=== PATIENT | female | born 1940 | race Caucasian/White ===

== ENCOUNTER → 2019-10-23 | Emergency (ER) | payer OTHER ==
[~2019-10-23] VITALS: Ht 170.2 cm; Wt 61.2 kg
[~2019-10-23] MED LIST: ALBUTEROL SULF 2.5 MG/0.5ML(0.5%) NEB SOLN NEB ONE; FUROSEMIDE 20 MG/2 ML VIAL ONE; FUROSEMIDE 40 MG/4 ML VIAL IV ONE; FUROSEMIDE INJECTION 10 ML ONE; IPRATROPIUM BROM 0.5 MG/2.5ML INH SOL NEB ONE; ONDANSETRON HCL 4 MG/2 ML VIAL IV ONE; ONDANSETRON HCL 4 MG/2 ML VIAL ONE; cloNIDine HCL 0.1 MG TAB PO ONE; methylPREDNISolone SOD SUCC 125 MG/2 ML VL IV ONE; predniSONE 20 MG TAB PO ONE
[2019-10-23 02:54] LABS: Basophils # (auto) 0.1 10 ^3/uL (0-0.2); Basophils % (auto) 0.8 % (0.0-2.0); Eosinophils # (auto) 0.4 10 ^3/uL (0-0.8); Eosinophils % (auto) 3.3 % (0.0-7.0); Hematocrit 41.2 % (36.0-46.0); Hemoglobin 13.1 g/dL (12.2-16.2); Lymphocytes # (auto) 3.2 10 ^3/uL (0.4-5.4); Lymphocytes % (auto) 29.1 % (10.0-50.0); Mean Corpuscular Hemoglobin 28.8 pg (28.0-32.0); Mean Corpuscular Hgb Conc. 31.7 g/dL (32.0-36.0); Mean Corpuscular Volume 90.8 fL (80.0-100.0); Monocytes # (auto) 0.6 10 ^3/uL (0-1.3); Monocytes % (auto) 5.1 % (0.0-12.0); Neutrophils # (auto) 6.7 10 ^3/uL (1.6-8.6); Neutrophils % (auto) 61.7 % (37.0-80.0); Nucleated Red Blood Cells % 0.1 %; Platelet Count (auto) 301 10^3/uL (140-450); Red Blood Cells 4.53 10^6/uL (4.0-5.20); Red Cell Distribution Width 15.5 % (11.8-14.3); White Blood Cell 10.8 10^3/uL (4.4-10.8)
[2019-10-23 03:09] LABS: Alanine Aminotransferase 19 U/L (13-56); Albumin 3.5 g/dL (3.4-5.0); Anion Gap 4 (5-15); Aspartate Aminotransferase 18 U/L (15-37); BUN/Creatinine Ratio 27.1; Blood Urea Nitrogen 19 mg/dL (7-18); Carbon Dioxide 30 mmol/L (21-32); Chloride 102 mmol/L (98-107); GFR African American 104 mL/min; GFR Non-African American 86 mL/min; Glucose 122 mg/dL (74-106); Potassium 3.8 mmol/L (3.5-5.1); Sodium 136 mmol/L (136-145)
[2019-10-23 03:14] LABS: Alkaline Phosphatase 131 U/L (45-117); Bilirubin, Total 0.4 mg/dL (0.2-1.0); Total Protein 7.6 g/dL (6.4-8.2)
[2019-10-23 11:00] VITALS: BP 158/74
== END | disposition home or self-care (01) ==
LOC: EDBD 02:12 → EDSEX 02:12 → ER 02:17
DX: J44.1 Chronic obstructive pulmonary disease with (acute) exacerbation (principal); I10 Essential (primary) hypertension
CPT/HCPCS: 36415; 71045; 80053; 83880; 84484; 85025; 85379; 93005; 94640; 96374; 96375; 99285; J1940; J2405; J2930; J7512; J7644

== ENCOUNTER 2019-12-19 11:42 | Inpatient (IN) | payer OTHER ==
[~2019-12-19] VITALS: Ht 170.2 cm; Wt 67.5 kg
[2019-12-19] MEDS ORDERED: methylPREDNISolone SOD SUCC 125 MG/2 ML VL IV ONE (12:00)
[2019-12-19] MEDS ORDERED: IPRATROPIUM BROM 0.5 MG/2.5ML INH SOL NEB ONE (12:00)
[2019-12-19] MEDS ORDERED: ALBUTEROL SULF 2.5 MG/0.5ML(0.5%) NEB SOLN NEB ONE (12:00)
[2019-12-19 12:33] LABS: Basophils # (auto) 0.1 10 ^3/uL (0-0.2); Basophils % (auto) 0.9 % (0.0-2.0); Eosinophils # (auto) 0.6 10 ^3/uL (0-0.8); Eosinophils % (auto) 6.5 % (0.0-7.0); Hematocrit 39.1 % (36.0-46.0); Hemoglobin 12.6 g/dL (12.2-16.2); Lymphocytes % (auto) 22.7 % (10.0-50.0); Mean Corpuscular Hemoglobin 29.4 pg (28.0-32.0); Mean Corpuscular Hgb Conc. 32.2 g/dL (32.0-36.0); Mean Corpuscular Volume 91.3 fL (80.0-100.0); Monocytes # (auto) 0.3 10 ^3/uL (0-1.3); Neutrophils # (auto) 5.7 10 ^3/uL (1.6-8.6); Neutrophils % (auto) 65.9 % (37.0-80.0); Nucleated Red Blood Cells % 0.1 %; Platelet Count (auto) 304 10^3/uL (140-450); Red Blood Cells 4.29 10^6/uL (4.0-5.20); Red Cell Distribution Width 14.7 % (11.8-14.3); White Blood Cell 8.6 10^3/uL (4.4-10.8)
[2019-12-19] MEDS ORDERED: AZITHROMYCIN 500MG/ 250ML 250 ML IV ONE (12:45)
[2019-12-19 13:20] LABS: Magnesium 2.2 mg/dL (1.6-2.6)
[2019-12-19 13:37] LABS: Albumin 3.4 g/dL (3.4-5.0); Calcium 8.5 mg/dL (8.5-10.1); Potassium 3.9 mmol/L (3.5-5.1)
[2019-12-19 13:40] LABS: BUN/Creatinine Ratio 31.9; Bilirubin, Total 0.7 mg/dL (0.2-1.0); Total Protein 7.1 g/dL (6.4-8.2)
[2019-12-19] MEDS ORDERED: ONDANSETRON HCL 4 MG/2 ML VIAL IV PRN (14:45)
[2019-12-19] MEDS ORDERED: MORPHINE SULF INJ 2 MG/ML SYRINGE 1ML IV PRN (14:45)
[2019-12-19] MEDS ORDERED: traMADol HCL 50 MG TAB PO PRN (14:45)
[2019-12-19] MEDS ORDERED: NITROGLYCERIN 0.4 MG SL TAB SL PRN (14:45)
[2019-12-19] MEDS ORDERED: LACTULOSE 20Gm/30ML SOLN PO PRN (14:45)
[2019-12-19] MEDS: methylPREDNISolone SOD SUCC 40 MG/ML VL IV SCH (14:45)
[2019-12-19] MEDS ORDERED: ALBUTEROL SULF 2.5 MG/0.5ML(0.5%) NEB SOLN NEB PRN (14:45)
[2019-12-19] MEDS ORDERED: ENALAPRILAT 1.25 MG/ML-1ML VIAL IV PRN (14:45)
[2019-12-19] MEDS ORDERED: DEXTROSE (50%) 50ML SYRG IV PRN (14:45)
[2019-12-19] MEDS: DOXYCYCLINE 100MG/250ML 250 ML IV SCH (14:45)
[2019-12-19] MEDS ORDERED: ACETAMINOPHEN 500 MG TAB PO PRN (14:45)
[2019-12-19] MEDS ORDERED: TEMAZEPAM 15 MG CAP PO PRN (14:45)
--- NOTE | 2019-12-19 15:20 | NUR ---
ARRIVAL NOTE: PATIENT AR[facility] TO [facility]. PATIENT COMPLAINING OF SHORTNESS OF BREATH AT THIS TIME. PATIENT ON 3L NC. PURSED LIP BREATHING NOTED. PATIENT TRANSFERRED VIA GURNEY. PATIENT HOB ELEVATED TO 45 DEGREE ANGLE. PATIENT REPORTS SOME RELIEF. 02 SATURATIONS AT 97%, RR 20. PATIENT BLOOD PRESSURE 197/90MMHG ON ARRIVAL. WILL MEDICATE PER EMR. TELE MONITOR #8 RUNNING SINUS RHYTHM IN THE 90'S. PATIENT UPDATED ON POC. VERBALIZED UNDERSTANDING BED IN LOWEST LOCKED POSITION WITH CALL LIGHT WITHIN REACH. WILL CONTINUE CARE.
[2019-12-19 15:25] VITALS: BP 163/73
[2019-12-19 15:30] VITALS: BP 197/90
[2019-12-19] MEDS: SODIUM CHLORIDE 0.9% 1,000 ML IV SCH (15:46)
[2019-12-19] MEDS ORDERED: ALBU1SYP PO (16:58)
[2019-12-19] MEDS ORDERED: FLUT250M2 INH (16:58)
[2019-12-19] MEDS ORDERED: TIOTCAP IN (16:58)
--- NOTE | 2019-12-19 16:58 | NUR ---
IV insertion IV access obtained, via clean sterile technique by inserting 20 gauge catheter at LFA after 1 attempt(s). IV secured properly. No trauma to site. Patient tolerated well. IV TO LEFT WRIST DC'D DUE TO INFILTRATION. NOTE:
[2019-12-19] MEDS: ACCU-CHEK COMFORT CURVE STRIP VI SCH ×2 (17:00→21:52)
--- NOTE | 2019-12-19 18:10 | NUR ---
PATIENT TRANSFERRED TO ROOM 248A. REPORT GIVEN TO RN JOSE. NO S/S OF DISTRESS NOTED AT THIS TIME.
--- NOTE | 2019-12-19 18:20 | NUR ---
PATIENT RECEIVED TRANSFERED TO EAST. NO C/O CHEST PAIN. NOTED S/S OF SOB. PATIENT USED INHALER FOR SOB. PATIENT IS A/O X 4, PULM: LUNGS SOUNDS DIMINISHED AT THE BASES. CARDIAC, HEART SOUNDS CTA. WILL CONTINUE TO MONITOR AND ENDORSE TO NOC SHIFT.
--- NOTE | 2019-12-19 19:26 | NUR ---
Opening Shift Note Assumed care of patient. Pt is awake, alert, and oriented X 4. No S/S of respiratory distress, no pain. Patient is on supplemental oxygen 2.5 LPM via NC. Respirations are regular and non-labored. Bed in lowest position, brakes locked, side rails X 2 up, call light within reach. Tele box matches to the monitor, leads are correctly placed. POC discussed with a patient. Pt was instructed to call for assistance as needed. Will continue to monitor for changes Q1hr and PRN.
[2019-12-19 20:00] VITALS: BP 159/96
[2019-12-19] MEDS: ALBUTEROL SULF HFA 90MCG INH 200DOSE IN SCH (21:35)
--- NOTE | 2019-12-19 21:58 | NUR ---
Paging hospitalist because patient is very SOB and coughing frequently. Patient only has scheduled Albuterol inhaler 180 mcg for SOB.
[2019-12-19 22:00] VITALS: BP 159/96
[2019-12-19] MEDS ORDERED: IPRATROPIUM BROM 0.5 MG/2.5ML INH SOL NEB SCH (22:00)
[2019-12-19] MEDS ORDERED: ALBUTEROL SULF 2.5 MG/0.5ML(0.5%) NEB SOLN NEB SCH (22:00)
--- NOTE | 2019-12-19 22:15 | NUR ---
Spoke to MD Quintana regarding patient's SOB and constant coughing. Orders received: 1) Robitussin-DM 10 ml PO q 4 hrs PRN, 2) Albuterol 2.5 mg Nebulizer q 4 hrs PRN, 3) Atrovent 0.5 mg Nebulizer q 4 hrs PRN.
[2019-12-19] MEDS: guaiFENesin-DM 100/10mg/5ml SYR PO PRN (22:33)
[2019-12-20] MEDS: ALBUTEROL SULF 2.5 MG/0.5ML(0.5%) NEB SOLN NEB PRN ×3 (00:25→09:34)
[2019-12-20] MEDS: IPRATROPIUM BROM 0.5 MG/2.5ML INH SOL NEB PRN ×3 (00:26→09:35)
[2019-12-20] MEDS ORDERED: LOSA25TA38 PO (02:26)
[2019-12-20] MEDS: methylPREDNISolone SOD SUCC 40 MG/ML VL IV SCH ×2 (02:35→15:58)
[2019-12-20] MEDS: DOXYCYCLINE 100MG/250ML 250 ML IV SCH ×2 (02:36→15:58)
[2019-12-20] MEDS: SODIUM CHLORIDE 0.9% 1,000 ML IV SCH (02:37)
[2019-12-20 05:00] VITALS: BP 136/69
[2019-12-20] MEDS: ALBUTEROL SULF HFA 90MCG INH 200DOSE IN SCH ×2 (05:49→06:25)
--- NOTE | 2019-12-20 06:02 | NUR ---
Spoke to MD Quintana regarding patient's incontinence and our inability to gain a urine sample. Order received: Straight cath once for urinalysis.
--- NOTE | 2019-12-20 06:25 | NUR ---
Respiratory note: MDI GIVEN BY RN, TOLERATED WELL.
[2019-12-20] MEDS: ACCU-CHEK COMFORT CURVE STRIP VI SCH (06:48)
--- NOTE | 2019-12-20 07:28 | NUR ---
Opening Shift Note Assumed care of patient, resting with eyes closed, arouseable to name. No S/S of distress/SOB, no pain noted. Bed locked in lowest position, side rails up x2, call light within reach. Fall precautions in place per safety protocol. Will continue to monitor for changes Q1hr and PRN
[2019-12-20 08:00] VITALS: BP 148/92
[2019-12-20 09:47] LABS: Urine Bacteria FEW /hpf (None Seen); Urine Blood Negative /uL (Negative); Urine Specific Gravity 1.012 (1.001-1.035); Urine WBC <1 /hpf (0 - 5)
[2019-12-20] MEDS ORDERED: ENOXAPARIN SOD 40 MG/0.4 ML SYRINGE SC SCH (10:00)
[2019-12-20] MEDS ORDERED: ENALAPRIL MALEATE 2.5 MG TAB PO SCH (10:00)
--- NOTE | 2019-12-20 10:53 | NUR ---
WOUND CARE NOTE: WOUND CARE IN TO SEE PATIENT PER WOUND CARE REQUEST. PATIENT ADMITTED TO [facility] FOR COPD EXACERBATION. PATIENT'S LISA SCORE IS 19. BEDSIDE NURSE NOTED SKIN INTEGRITY ISSUE UPON ADMISSION. PHOTOGRAPH TAKEN AT THAT TIME FOR REFERENCE. PATIENT HAS A SKIN TEAR TO THE RIGHT SHEPHERD. REMOVED PREVIOUS DRESSING, CLEANSED WITH NORMAL SALINE, PATTED DRY WITH STERILE GAUZE, APPLIED THERAHONEY AND COVERED WITH OPTIFOAM GENTLE DRESSING. NO THER SKIN INTEGRITY ISSUES NOTED AT THIS TIME. RECOMMEND: EOD/PRN DRESSING CHANGE TO RIGHT SHEPHERD. SKIN/WOUND CARE PLAN. NO FURTHER WOUND CARE MONITORING NECESSARY. Addendum: 12/20/19 at 1554 by ROBBY ANDERSON RN RN Amended: Links added.
[2019-12-20 12:00] VITALS: BP 137/71
[2019-12-20] MEDS: guaiFENesin-DM 100/10mg/5ml SYR PO PRN (12:00)
[2019-12-20] MEDS ORDERED: amLODIPine BESYLATE 5 MG TAB PO ONE (12:00)
[2019-12-20] MEDS: IPRATROPIUM BROM 0.5 MG/2.5ML INH SOL NEB SCH ×3 (12:20→18:25)
[2019-12-20] MEDS: ALBUTEROL SULF 2.5 MG/0.5ML(0.5%) NEB SOLN NEB SCH ×3 (12:20→18:25)
--- NOTE | 2019-12-20 13:50 | NUR ---
TELE DC'D, TELE BOX SENT TO ICU.
--- NOTE | 2019-12-20 15:20 | NUR ---
Patient rounds Patient sitting up in bed watching television, no s/s of distress or sob. Will continue to monitor q1hr and PRN.
[2019-12-20 17:00] VITALS: BP 159/78
--- NOTE | 2019-12-20 20:24 | NUR ---
Patient will not allow me to take away the albuterol 90 mcg inhaler she was prescribed in COVID unit, even though medication has been discontinued. She wants the inhaler in case she has an asthma attack or has sudden SOB. I educated patient that the patient was receiving 2.5 mg Albuterol with every breathing treatment and that there were also PRN breathing treatments available. She states the 90 mcg inhaler works better and that the treatments only work with it. she states she is terrified of being intubated again and if the inhaler prevents that than she wants it nearby. Patient still refused to allow me to remove inhaler from respiratory equipment bag in room. I told her that our policy is not to have any medications in the patient's room and not to allow patients to administer any medications by themselves but she refused. She wants the inhaler available. I educated patient also that the increased albuterol dosage from using the inhaler may decrease the effectiveness of the medication overall. Still, patient wants inhaler. Charge nurse made aware.
[2019-12-20 21:28] VITALS: BP 143/70
[2019-12-21] MEDS: IPRATROPIUM BROM 0.5 MG/2.5ML INH SOL NEB SCH ×7 (01:14→22:14)
[2019-12-21] MEDS: ALBUTEROL SULF 2.5 MG/0.5ML(0.5%) NEB SOLN NEB SCH ×7 (01:14→22:13)
[2019-12-21] MEDS: methylPREDNISolone SOD SUCC 40 MG/ML VL IV SCH ×3 (03:03→21:01)
[2019-12-21] MEDS: DOXYCYCLINE 100MG/250ML 250 ML IV SCH (03:04)
[2019-12-21 05:58] VITALS: BP 151/82
--- NOTE | 2019-12-21 07:20 | NUR ---
Opening Shift Note Assumed care of patient, awake and alert. No S/S of distress/SOB, no pain noted. Updated on POC and instructed to call for assistance as needed, patient verbalized understanding. Bed locked in lowest position, side rails up x2, call light within reach. Fall precautions in place per safety protocol. Will continue to monitor for changes Q1hr and PRN
[2019-12-21 08:00] VITALS: BP 144/87
[2019-12-21] MEDS: amLODIPine BESYLATE 5 MG TAB PO SCH (09:21)
[2019-12-21] MEDS ORDERED: AZITHROMYCIN 500MG/ 250ML 250 ML IV ONE (11:45)
[2019-12-21] MEDS ORDERED: FUROSEMIDE 20 MG/2 ML VIAL IV ONE (11:45)
[2019-12-21] MEDS ORDERED: POTASSIUM CHL 20 Meq TABLET PO ONE (11:45)
[2019-12-21] MEDS ORDERED: BUDESONIDE (INHALATION) 0.5 MG/2 ML NEB NEB ONE (11:45)
[2019-12-21] MEDS ORDERED: LORazepam 2MG/ML-1ML VIAL IV PRN (11:45)
[2019-12-21] MEDS ORDERED: cefTRIAXone 1GM/50ML D5W 50 ML IV ONE (11:45)
[2019-12-21 12:00] VITALS: BP 164/82
--- NOTE | 2019-12-21 15:05 | NUR ---
Patient rounds Patient sitting up in bed watching television, no s/s of distress or sob. Will continue to monitor q1hr and PRN.
[2019-12-21 17:00] VITALS: BP 149/76
--- NOTE | 2019-12-21 18:53 | NUR ---
Patient rounds Patient awake and alert, sitting up in bed eating dinner, no s/s of distress or sob. Will endorse care to night auditor RN.
--- NOTE | 2019-12-21 20:00 | NUR ---
Opening Shift Note Assumed care of patient, awake and alert. No S/S of distress/SOB or pain. Instructed on POC and to call for assist PRN, will continue to monitor for changes Q1hr and PRN.
[2019-12-21 22:00] VITALS: BP 149/76
[2019-12-21] MEDS: BUDESONIDE (INHALATION) 0.5 MG/2 ML NEB NEB SCH (22:14)
[2019-12-22] MEDS: IPRATROPIUM BROM 0.5 MG/2.5ML INH SOL NEB SCH ×6 (02:46→22:00)
[2019-12-22] MEDS: ALBUTEROL SULF 2.5 MG/0.5ML(0.5%) NEB SOLN NEB SCH ×6 (02:46→21:59)
[2019-12-22] MEDS: methylPREDNISolone SOD SUCC 40 MG/ML VL IV SCH ×3 (03:31→20:11)
[2019-12-22 05:00] VITALS: BP 149/68
[2019-12-22 06:33] LABS: BUN/Creatinine Ratio 31.6; Calcium 8.6 mg/dL (8.5-10.1); Potassium 4.2 mmol/L (3.5-5.1)
--- NOTE | 2019-12-22 07:05 | NUR ---
Report given to Rohan Enciso and told patient is sensitive to cleaning bleach , she smelled it, face mask given, and WEAVER NEEDLE LOOM made aware.
[2019-12-22 09:03] VITALS: BP 148/76
[2019-12-22] MEDS: amLODIPine BESYLATE 5 MG TAB PO SCH (09:43)
[2019-12-22] MEDS: cefTRIAXone 1GM/50ML D5W 50 ML IV SCH (09:43)
[2019-12-22] MEDS: AZITHROMYCIN 500MG/ 250ML 250 ML IV SCH (09:43)
[2019-12-22] MEDS: BUDESONIDE (INHALATION) 0.5 MG/2 ML NEB NEB SCH ×2 (10:13→17:58)
[2019-12-22 11:30] VITALS: BP 148/76
[2019-12-22 12:11] VITALS: BP 155/80
--- NOTE | 2019-12-22 12:38 | NUR ---
1230 12/22/19 I faxed transfer order and Notice Regarding Post Stabilization to [facility]-document scanned into [employer]. I faxed today's MD progress notes, labs, vitals and medication list to [facility].
--- NOTE | 2019-12-22 14:29 | NUR ---
Nutrition Assessment Notes Please refer to link for full assessment notes. Est Energy needs: 1395-1326 kcals (23-25 kcal/kgBW) Est Protein needs: 79-105 gms/day (1.2-1.6 gm/kgBW) Will continue to monitor and reassess prn. Addendum: 12/22/19 at [address] Amended: Links added.
[2019-12-22 16:48] VITALS: BP 156/77
--- NOTE | 2019-12-22 17:00 | NUR ---
1630 12/22/19 I called [facility] and spoke with senior tax analyst Radha to request an update on the status of the transfer to [facility]. Per Radha, the assigned social work case manager Fany did receive the order and is working on the transfer.
--- NOTE | 2019-12-22 17:36 | NUR ---
PATIENT SPOKE WITH HERMINIO PER PATIENT HERMINIO STATED THAT PATIENT WILL NOT BE TRANSFERRED. UPDATED BOONE WITH CASE MANAGEMENT AND MANAGER THERAPY ELVI GEE MADE AWARE.
--- NOTE | 2019-12-22 18:53 | NUR ---
Patient Rounds Patient sitting up in bed eating dinner, no s/s of distress or sob. Will endorse care to warehouse worker 2nd shift RN.
--- NOTE | 2019-12-22 19:20 | NUR ---
Opening Shift Note Assumed care of patient, awake and alert. No S/S of distress/SOB or pain. POC discussed and questions answered. Bed is locked in lowest position with side rails up x 2 for safety, call light is within reach and patient is encouraged to call for assistance as needed, will continue to monitor for changes Q1hr and PRN.
[2019-12-22 22:00] VITALS: BP 157/84
[2019-12-23] MEDS: ALBUTEROL SULF 2.5 MG/0.5ML(0.5%) NEB SOLN NEB SCH ×6 (02:08→22:15)
[2019-12-23] MEDS: IPRATROPIUM BROM 0.5 MG/2.5ML INH SOL NEB SCH ×6 (02:08→22:14)
--- NOTE | 2019-12-23 04:05 | NUR ---
IV removal IV DC'd with clean sterile technique, catheter fully intact. Pressure dressing applied to site. Patient tolerated well.
[2019-12-23] MEDS: methylPREDNISolone SOD SUCC 40 MG/ML VL IV SCH ×2 (04:20→22:15)
--- NOTE | 2019-12-23 04:24 | NUR ---
IV insertion IV access obtained, via clean sterile technique by inserting 22 gauge catheter at right forearm after 2 attempt(s). IV secured properly. No trauma to site. Patient tolerated well.
[2019-12-23 04:56] VITALS: BP 155/82
[2019-12-23] MEDS: BUDESONIDE (INHALATION) 0.5 MG/2 ML NEB NEB SCH ×2 (06:07→18:17)
--- NOTE | 2019-12-23 08:09 | NUR ---
0800 12/23/19 I received a page from patient's nurse 12/22/19 regarding transfer to [facility] order stating that the [facility] Parts Sales Advisor had spoke with patient and patient told her she didn't want to be transferred to [facility]-case aide told her she could stay here because she is a [facility] senior and is more than 30 miles from their nearest facility.
[2019-12-23 09:00] VITALS: BP 145/77
[2019-12-23] MEDS: cefTRIAXone 1GM/50ML D5W 50 ML IV SCH (10:24)
[2019-12-23] MEDS: AZITHROMYCIN 500MG/ 250ML 250 ML IV SCH (10:30)
[2019-12-23] MEDS: amLODIPine BESYLATE 5 MG TAB PO SCH (10:30)
[2019-12-23] MEDS ORDERED: HCTZ 25 MG TAB PO ONE (12:00)
[2019-12-23 13:00] VITALS: BP 154/81
--- NOTE | 2019-12-23 13:29 | NUR ---
PT BP 154/81, HR 95, NO PRN ON BOARD, CALLED DR ERAZO, NOTIFIED PT BP IN 150'S. REPORTS HE IS AWARE AND HE ORDERED HYDROCHLOROTHIAZIDE, BUT IT TAKES TIME WORK.
--- NOTE | 2019-12-23 13:39 | NUR ---
assessment Patient is a 79 year old female who is alert and oriented. Patients cognitive abilities are intact. Prior to admission patient lived home with family and functioned with assistance. Per patient she will return home to her prior living arrangements post discharge and family will transport her home. Patient informed me she has a fww, scooter, nebulizer, bipap, and oxygen for home use. Per patient her PCP is Dr Harmon at the [facility]. Patient is aware of her transfer order. Patient informed me she prefers not to transfer. I informed patient she has a right to speak to a protective services social worker regarding all care. I informed patient she has a right to participate in any and all discharge planning. Patient has a POA and advanced directive. Patient verbalized understanding and agreed to discharge plan. Addendum: 12/23/19 at 1341 by Kena BYERS Amended: Links added.
--- NOTE | 2019-12-23 16:42 | NUR ---
WOUND CARE PT WOUND RIGHT SHEPHERD CLEANSED WITH WOUND CLEANSER, THERA HONEY AND OPTIFOAM APPLIED. PT TOLERATED PROCEDURE WELL.
[2019-12-23 17:00] VITALS: BP 143/84
--- NOTE | 2019-12-23 18:19 | NUR ---
RT NOTE PT WAS SEEN BY RT FOR [facility]N TX. PT TOLERATES WELL VIA MASK. NO ADVERSE REACTION NOTED. CONT ORDERED Addendum: 12/23/19 at 1820 by Mary Lucas RT Amended: Links added.
[2019-12-23 22:00] VITALS: BP 155/84
--- NOTE | 2019-12-23 22:18 | NUR ---
RT NOTE PT WAS SEEN BY RT FOR HHN TX. PT TOLERATES WELL VIA MASK. NO ADVERSE REACTION NOTED. CONT ORDERED Addendum: 12/23/19 at 2220 by Mary Lucas RT Amended: Links added.
[2019-12-24] MEDS: ALBUTEROL SULF 2.5 MG/0.5ML(0.5%) NEB SOLN NEB SCH ×5 (02:03→18:38)
[2019-12-24] MEDS: IPRATROPIUM BROM 0.5 MG/2.5ML INH SOL NEB SCH ×5 (02:03→18:38)
--- NOTE | 2019-12-24 02:15 | NUR ---
RT NOTE PT WAS SEEN BY RT FOR [facility]N TX. PT TOLERATES WELL VIA MASK. NO ADVERSE REACTION NOTED. CONT ORDERED Addendum: 12/24/19 at 0230 by Mary Lucas RT Amended: Links added.
[2019-12-24 05:00] VITALS: BP 136/84
[2019-12-24] MEDS: BUDESONIDE (INHALATION) 0.5 MG/2 ML NEB NEB SCH ×2 (06:56→18:38)
[2019-12-24 08:42] VITALS: BP 133/87
[2019-12-24] MEDS: cefTRIAXone 1GM/50ML D5W 50 ML IV SCH (08:51)
[2019-12-24] MEDS: amLODIPine BESYLATE 5 MG TAB PO SCH (08:56)
[2019-12-24] MEDS: methylPREDNISolone SOD SUCC 40 MG/ML VL IV SCH (08:57)
[2019-12-24] MEDS ORDERED: AZITHROMYCIN 250 MG TAB PO SCH (10:00)
[2019-12-24] MEDS ORDERED: HCTZ 25 MG TAB PO SCH (10:00)
[2019-12-24 11:49] VITALS: BP 133/87
[2019-12-24 13:00] VITALS: BP 145/90
--- NOTE | 2019-12-24 13:01 | NUR ---
WOUND PHOTOS TAKEN OF LEFT SHEPHERD FOR DC.
--- NOTE | 2019-12-24 13:38 | NUR ---
PT REPORTS SHE HAS PORTABLE OXYGEN FROM HOME AT BEDSIDE WITH 91% CHARGE. SPOKE WITH PATIENT DAUGHTER, DAUGHTER REPORTS SHE CANNOT PICK PATIENT UP UNTIL 1700. PT HOME MEDS RETURNED TO PATIENT FROM PHARMACY. PATIENT ADVISED NOT TO USE THEM WHILE IN HOSPITAL. PT AWARE.
[2019-12-24 17:00] VITALS: BP 106/84
--- NOTE | 2019-12-24 18:25 | NUR ---
RT NOTE PT WAS SEEN BY RT FOR HHN TX. PT TOLERATES WELL VIA MASK. NO ADVERSE REACTION NOTED. CONT ORDERED Addendum: 12/24/19 at 1929 by Mary Lucas RT Amended: Links added.
--- NOTE | 2019-12-24 18:52 | NUR ---
Discharge instructions given as ordered. Encourage to follow up with PMD at [facility] as instructed. All questions and concerns addressed. Patient verbalized understanding. Medication reconciliation form completed and copy given to patient. Home medications held in Pharmacy returned to patient. IV removed with catheter intact, pressure dressing applied. Patient taken to vehicle via wheelchair with all personal belongings, accompanied by staff. No distress noted at time of departure.
== END 2019-12-24 19:00 | disposition home or self-care (01) | DRG 193 ==
LOC: EDBD 11:42 → ER 11:42 → TELE-EAST 11:43 → EAST 12-20 14:59
PROVIDERS: ADMIT Internal Medicine; ATTEND Internal Medicine
DX: J15.4 Pneumonia due to other streptococci (principal); J96.20 Acute and chronic respiratory failure, unspecified whether with hypoxia or hypercapnia; J44.1 Chronic obstructive pulmonary disease with (acute) exacerbation; J44.0 Chronic obstructive pulmonary disease with (acute) lower respiratory infection; J45.901 Unspecified asthma with (acute) exacerbation; I16.0 Hypertensive urgency; R73.9 Hyperglycemia, unspecified; I10 Essential (primary) hypertension; Z03.818 Encounter for observation for suspected exposure to other biological agents ruled out; Z90.49 Acquired absence of other specified parts of digestive tract; Z90.710 Acquired absence of both cervix and uterus; Z88.5 Allergy status to narcotic agent; Z88.2 Allergy status to sulfonamides
CPT/HCPCS: 36415; 71045; 80048; 80053; 81001; 82962; 83036; 83605; 83735; 83880; 84484; 85025; 87040; 87070; 87205; 87804; 87880; 93005; 94640; 97163; 99291; G0378; J0696; J3490

== ENCOUNTER 2020-03-21 22:09 | Emergency (ER) | payer OTHER ==
[~2020-03-21] VITALS: Ht 170.2 cm; Wt 65.8 kg
[~2020-03-21 22:09] MED LIST changes: +ALBU2SYP10 PO; -ALBUTEROL SULF 2.5 MG/0.5ML(0.5%) NEB SOLN NEB ONE; +FLUT250M2 INH; -FUROSEMIDE 20 MG/2 ML VIAL ONE; -FUROSEMIDE 40 MG/4 ML VIAL IV ONE; -FUROSEMIDE INJECTION 10 ML ONE; -IPRATROPIUM BROM 0.5 MG/2.5ML INH SOL NEB ONE; +LOSA25TA38 PO; -ONDANSETRON HCL 4 MG/2 ML VIAL IV ONE; -ONDANSETRON HCL 4 MG/2 ML VIAL ONE; +TIOTCAP IN; -cloNIDine HCL 0.1 MG TAB PO ONE; -methylPREDNISolone SOD SUCC 125 MG/2 ML VL IV ONE; -predniSONE 20 MG TAB PO ONE
[2020-03-21] MEDS ORDERED: methylPREDNISolone SOD SUCC 125 MG/2 ML VL ONE (22:20)
[2020-03-21] MEDS ORDERED: methylPREDNISolone SOD SUCC 125 MG/2 ML VL IV ONE (22:30)
[2020-03-21 22:44] LABS: Basophils # (auto) 0.1 10 ^3/uL (0-0.2); Basophils % (auto) 1.1 % (0.0-2.0); Eosinophils # (auto) 0.4 10 ^3/uL (0-0.8); Hematocrit 39.6 % (36.0-46.0); Hemoglobin 13.4 g/dL (12.2-16.2); Lymphocytes # (auto) 3.7 10 ^3/uL (0.4-5.4); Lymphocytes % (auto) 41.8 % (10.0-50.0); Mean Corpuscular Hemoglobin 30.8 pg (28.0-32.0); Mean Corpuscular Hgb Conc. 33.9 g/dL (32.0-36.0); Mean Corpuscular Volume 90.9 fL (80.0-100.0); Monocytes # (auto) 0.6 10 ^3/uL (0-1.3); Monocytes % (auto) 6.3 % (0.0-12.0); Neutrophils % (auto) 45.8 % (37.0-80.0); Nucleated Red Blood Cells % 0.1 %; Platelet Count (auto) 318 10^3/uL (140-450); Red Blood Cells 4.35 10^6/uL (4.0-5.20); Red Cell Distribution Width 14.1 % (11.8-14.3); White Blood Cell 8.8 10^3/uL (4.4-10.8)
[2020-03-21 23:02] LABS: Albumin 3.8 g/dL (3.4-5.0); Anion Gap 5 (5-15); BUN/Creatinine Ratio 23.5; Blood Urea Nitrogen 20 mg/dL (7-18); Calcium 8.8 mg/dL (8.5-10.1); Carbon Dioxide 32 mmol/L (21-32); Chloride 102 mmol/L (98-107); GFR African American 83 mL/min; GFR Non-African American 69 mL/min; Glucose 103 mg/dL (74-106); Potassium 4.3 mmol/L (3.5-5.1); Sodium 139 mmol/L (136-145)
[2020-03-21 23:11] LABS: Alanine Aminotransferase 37 U/L (13-56); Alkaline Phosphatase 125 U/L (45-117); Aspartate Aminotransferase 38 U/L (15-37); Bilirubin, Total 0.5 mg/dL (0.2-1.0); Total Protein 7.2 g/dL (6.4-8.2)
[2020-03-21 23:15] LABS: INR 0.91 (0.9-1.15)
[2020-03-22] MEDS ORDERED: PROMETHAZINE HCL 6.25 MG/5 ML ORAL SYRUP PO ONE (04:15)
[2020-03-22] MEDS ORDERED: ALBUTEROL SULF 2.5 MG/0.5ML(0.5%) NEB SOLN ONE (04:56)
[2020-03-22] MEDS ORDERED: IPRATROPIUM BROM 0.5 MG/2.5ML INH SOL NEB ONE ×2 (05:00→05:15)
[2020-03-22] MEDS ORDERED: ALBUTEROL SULF 2.5 MG/0.5ML(0.5%) NEB SOLN NEB ONE ×2 (05:00→05:15)
[2020-03-22 08:21] VITALS: BP 130/49
== END 2020-03-22 04:01 | disposition short-term general hospital (02) ==
LOC: ER 22:09 → EDBD 22:09 → ER 03-22 04:01
DX: J44.1 Chronic obstructive pulmonary disease with (acute) exacerbation (principal); I10 Essential (primary) hypertension
CPT/HCPCS: 36415; 36600; 71045; 80053; 82805; 83880; 84484; 85025; 85379; 85610; 85730; 93005; 94640; 96374; 99291; J2930; J7644

== ENCOUNTER 2020-03-26 14:19 | Inpatient (IN) | payer OTHER ==
[~2020-03-26] VITALS: Ht 170.2 cm; Wt 70.1 kg
[2020-03-26] MEDS ORDERED: IPRATROPIUM BROM 0.5 MG/2.5ML INH SOL HHN ONE (14:45)
[2020-03-26] MEDS ORDERED: ALBUTEROL SULF 2.5 MG/0.5ML(0.5%) NEB SOLN HHN ONE (14:45)
[2020-03-26] MEDS ORDERED: methylPREDNISolone SOD SUCC 125 MG/2 ML VL IV ONE (14:45)
[2020-03-26 16:51] LABS: Basophils # (auto) 0 10 ^3/uL (0-0.2); Eosinophils # (auto) 0 10 ^3/uL (0-0.8); Lymphocytes # (auto) 0.9 10 ^3/uL (0.4-5.4); Monocytes # (auto) 0.1 10 ^3/uL (0-1.3); Monocytes % (auto) 1.1 % (0.0-12.0)
[2020-03-26 16:59] LABS: Basophils % (auto) 0.1 % (0.0-2.0); Hematocrit 38.9 % (36.0-46.0); Hemoglobin 12.6 g/dL (12.2-16.2); Lymphocytes % (auto) 7.8 % (10.0-50.0); Mean Corpuscular Hemoglobin 29.8 pg (28.0-32.0); Mean Corpuscular Hgb Conc. 32.5 g/dL (32.0-36.0); Mean Corpuscular Volume 91.6 fL (80.0-100.0); Neutrophils # (auto) 10.7 10 ^3/uL (1.6-8.6); Platelet Count (auto) 296 10^3/uL (140-450); Red Blood Cells 4.24 10^6/uL (4.0-5.20); Red Cell Distribution Width 13.8 % (11.8-14.3); White Blood Cell 11.8 10^3/uL (4.4-10.8)
[2020-03-26] MEDS ORDERED: NITROGLYCERIN 0.4 MG SL TAB SL PRN (17:00)
[2020-03-26] MEDS ORDERED: MORPHINE SULF INJ 2 MG/ML SYRINGE 1ML IV PRN ×2 (17:00→17:45)
[2020-03-26 17:04] LABS: Albumin 3.6 g/dL (3.4-5.0); Anion Gap 5 (5-15); Blood Urea Nitrogen 24 mg/dL (7-18); Calcium 8.9 mg/dL (8.5-10.1); Carbon Dioxide 31 mmol/L (21-32); Chloride 101 mmol/L (98-107); Glucose 132 mg/dL (74-106); Sodium 137 mmol/L (136-145)
[2020-03-26 17:10] LABS: Alanine Aminotransferase 59 U/L (13-56); Alkaline Phosphatase 107 U/L (45-117); Aspartate Aminotransferase 43 U/L (15-37); BUN/Creatinine Ratio 25.8; Bilirubin, Total 0.6 mg/dL (0.2-1.0); GFR African American 75 mL/min; GFR Non-African American 62 mL/min; Total Protein 6.6 g/dL (6.4-8.2)
[2020-03-26] MEDS ORDERED: ALBUTEROL SULF 2.5 MG/0.5ML(0.5%) NEB SOLN NEB PRN (17:45)
[2020-03-26] MEDS ORDERED: TEMAZEPAM 15 MG CAP PO PRN (17:45)
[2020-03-26] MEDS ORDERED: traMADol HCL 50 MG TAB PO PRN (17:45)
[2020-03-26] MEDS ORDERED: LACTULOSE 20Gm/30ML SOLN PO PRN (17:45)
[2020-03-26] MEDS ORDERED: ACETAMINOPHEN 500 MG TAB PO PRN (17:45)
[2020-03-26] MEDS ORDERED: ONDANSETRON HCL 4 MG/2 ML VIAL IV PRN (17:45)
[2020-03-26 18:40] LABS: Urine Bacteria NONE SEEN /hpf (None Seen); Urine Blood Negative /uL (Negative); Urine Specific Gravity 1.007 (1.001-1.035); Urine WBC <1 /hpf (0 - 5)
[2020-03-26] MEDS: methylPREDNISolone SOD SUCC 40 MG/ML VL IV SCH ×2 (18:40→23:50)
[2020-03-26] MEDS: SODIUM CHLORIDE 0.9% 1,000 ML IV SCH (18:41)
[2020-03-26] MEDS: DOXYCYCLINE 100MG/250ML 250 ML IV SCH (18:44)
[2020-03-26] MEDS: ALBUTEROL SULF 2.5 MG/0.5ML(0.5%) NEB SOLN NEB SCH (18:48)
[2020-03-26] MEDS: IPRATROPIUM BROM 0.5 MG/2.5ML INH SOL NEB SCH (18:48)
--- NOTE | 2020-03-26 19:55 | NUR ---
TELE ADMIT arrived to unit via stretcher. Patient safely transferred to bed. Patient is A&O X's 4 with no s/s of distress and reports no pain. Educated patient on POC/to use call light when in need of assistance and oriented patient to unit: call light/lights/bed/tv/unit policies/phone. Patient verbalized understanding. Bed is in lowest/locked position with side rails up X's 2 and call light is within reach of patient. Will continue care. Patient placed on 3L O2 via N.C.
--- NOTE | 2020-03-26 20:20 | NUR ---
JEFF HOSPITALIST BP at 193/107 HR 106
--- NOTE | 2020-03-26 20:27 | NUR ---
RECEIVED CALL BACK FROM MD MUÑIZ he is aware of high bp 193/107 New orders received. read back and verified. Will carry out orders
[2020-03-26] MEDS ORDERED: NIFEdipine ER 30 MG TAB PO ONE (20:45)
[2020-03-26] MEDS ORDERED: NIFEdipine 10 MG CAP PO ONE (20:45)
[2020-03-26 21:18] VITALS: BP 162/71
[2020-03-26 22:00] VITALS: BP 193/107
[2020-03-26 23:00] VITALS: BP 139/76
--- NOTE | 2020-03-26 23:00 | NUR ---
BP REASSESSMENT 139/76
[2020-03-27] MEDS: IPRATROPIUM BROM 0.5 MG/2.5ML INH SOL NEB SCH ×6 (01:29→22:00)
[2020-03-27] MEDS: ALBUTEROL SULF 2.5 MG/0.5ML(0.5%) NEB SOLN NEB SCH ×6 (01:29→22:00)
[2020-03-27 05:00] VITALS: BP 154/78
[2020-03-27 05:52] LABS: Basophils # (auto) 0 10 ^3/uL (0-0.2); Basophils % (auto) 0.1 % (0.0-2.0); Eosinophils # (auto) 0 10 ^3/uL (0-0.8); Hematocrit 37.3 % (36.0-46.0); Hemoglobin 12.6 g/dL (12.2-16.2); Lymphocytes # (auto) 0.8 10 ^3/uL (0.4-5.4); Lymphocytes % (auto) 12.7 % (10.0-50.0); Mean Corpuscular Hemoglobin 30.3 pg (28.0-32.0); Mean Corpuscular Hgb Conc. 33.8 g/dL (32.0-36.0); Mean Corpuscular Volume 89.9 fL (80.0-100.0); Monocytes # (auto) 0.1 10 ^3/uL (0-1.3); Neutrophils # (auto) 5.6 10 ^3/uL (1.6-8.6); Neutrophils % (auto) 85.2 % (37.0-80.0); Platelet Count (auto) 302 10^3/uL (140-450); Red Blood Cells 4.15 10^6/uL (4.0-5.20); Red Cell Distribution Width 13.8 % (11.8-14.3); White Blood Cell 6.5 10^3/uL (4.4-10.8)
[2020-03-27] MEDS: methylPREDNISolone SOD SUCC 40 MG/ML VL IV SCH ×3 (05:53→18:08)
[2020-03-27] MEDS: SODIUM CHLORIDE 0.9% 1,000 ML IV SCH ×2 (05:57→20:17)
[2020-03-27 06:18] LABS: Calcium 8.8 mg/dL (8.5-10.1); Potassium 3.8 mmol/L (3.5-5.1)
[2020-03-27 06:24] LABS: Albumin 3.6 g/dL (3.4-5.0); BUN/Creatinine Ratio 24.7; Bilirubin, Total 0.5 mg/dL (0.2-1.0); Total Protein 6.7 g/dL (6.4-8.2)
[2020-03-27 09:00] VITALS: BP 154/87
[2020-03-27] MEDS: NIFEdipine ER 30 MG TAB PO SCH (09:42)
[2020-03-27] MEDS: DOXYCYCLINE 100MG/250ML 250 ML IV SCH (09:45)
[2020-03-27] MEDS: ENOXAPARIN SOD 40 MG/0.4 ML SYRINGE SC SCH (09:46)
[2020-03-27] MEDS ORDERED: NIFEdipine ER 30 MG TAB PO SCH (10:00)
[2020-03-27] MEDS ORDERED: DEXTROSE (50%) 50ML SYRG IV PRN (10:45)
--- NOTE | 2020-03-27 10:45 | NUR ---
Hospitalist Rounded Dr. Otero at bedside.
[2020-03-27] MEDS ORDERED: TRIAMTERENE/HCTZ 37.5/25 MG CAP/TAB PO ONE (11:00)
--- NOTE | 2020-03-27 11:20 | NUR ---
SOB Patient complained of SOB after she went to bedside commode. O2 saturation at 99%. RT paged for breathing treatment.
[2020-03-27] MEDS: InsuLIN REG 1unit/0.01ml Soln (100units/ml) SC SCH ×3 (11:30→22:00)
[2020-03-27] MEDS: DOXYCYCLINE 100 MG TAB/CAP PO SCH ×2 (11:45→22:05)
[2020-03-27] MEDS: ACCU-CHEK COMFORT CURVE STRIP VI SCH ×3 (11:47→22:12)
[2020-03-27 12:57] VITALS: BP 156/86
--- NOTE | 2020-03-27 16:21 | NUR ---
assessment Patient is a 79 year old female who is alert and oriented. Patients cognitive abilities are intact. Prior to admission patient lived home with her daughter Evon and functioned with assistance. Per patient she will return home to her prior living arrangements post discharge and family will transport her home. Patient informed me she has a fww, wheelchair, scooter, bipap and oxygen for home use. Patients PCP is Dr Guerrero at the [facility]. I informed patient of her consult for needing a caregiver. I have referred patient to [facility] for the aid and assist program. I have provided patient with private pay caregiver resources. Patient accepted resources. Patient will also benefit from home health for safety and PT on discharge. I informed patient she has a right to speak to a social welfare administrator regarding all care. I informed patient she has a right to participate in any and all discharge planning. Patient has a POA and advanced directive. Patient verbalized understanding and agreed to discharge plan. Addendum: 03/27/20 at 1626 by Kena BYERS Amended: Links added.
[2020-03-27 16:56] VITALS: BP 137/87
--- NOTE | 2020-03-27 19:18 | NUR ---
Opening note Assumed care of patient, Patient is alert and orientated x4. Sob on exertion. instructed patient to use bedside lawrence if needed. patient verbalized understanding. Bed is locked in lowest position. side rails up x2. Call light within reach. Will continue to monitor.
[2020-03-27 22:00] VITALS: BP 159/106
--- NOTE | 2020-03-27 22:00 | NUR ---
RT at bedside Giving breathing treatment. Will continue to monitor.
--- NOTE | 2020-03-27 22:10 | NUR ---
Patient refused insulin Patients blood sugar is 150. Patient states she is not diabetic and her steroid medication is causing an increase in glucose. Patient educated, and still refused insulin. Will continue to monitor.
[2020-03-28] MEDS: methylPREDNISolone SOD SUCC 40 MG/ML VL IV SCH ×4 (00:31→17:12)
--- NOTE | 2020-03-28 01:30 | NUR ---
Bed lawrence Patient using bedpan at this time. No sob or distress noted. Patient tolerated well. Will continue to monitor.
[2020-03-28] MEDS: ALBUTEROL SULF 2.5 MG/0.5ML(0.5%) NEB SOLN NEB SCH ×5 (02:00→18:28)
[2020-03-28] MEDS: IPRATROPIUM BROM 0.5 MG/2.5ML INH SOL NEB SCH ×5 (02:00→18:28)
[2020-03-28 05:13] VITALS: BP 153/87
[2020-03-28] MEDS: InsuLIN REG 1unit/0.01ml Soln (100units/ml) SC SCH ×3 (06:09→16:58)
[2020-03-28] MEDS: ACCU-CHEK COMFORT CURVE STRIP VI SCH ×3 (06:09→16:58)
--- NOTE | 2020-03-28 06:10 | NUR ---
Patient refused insulin Patient states she does not want insulin. Educated patient. Patient still refused. will continue to monitor.
[2020-03-28 06:12] VITALS: BP 148/82
[2020-03-28 07:00] LABS: Basophils # (auto) 0 10 ^3/uL (0-0.2); Basophils % (auto) 0.1 % (0.0-2.0); Eosinophils # (auto) 0 10 ^3/uL (0-0.8); Hematocrit 38.1 % (36.0-46.0); Hemoglobin 12.4 g/dL (12.2-16.2); Lymphocytes # (auto) 0.6 10 ^3/uL (0.4-5.4); Lymphocytes % (auto) 7.6 % (10.0-50.0); Mean Corpuscular Hemoglobin 29.6 pg (28.0-32.0); Mean Corpuscular Hgb Conc. 32.5 g/dL (32.0-36.0); Mean Corpuscular Volume 91.1 fL (80.0-100.0); Monocytes # (auto) 0.2 10 ^3/uL (0-1.3); Monocytes % (auto) 2.8 % (0.0-12.0); Neutrophils # (auto) 7.2 10 ^3/uL (1.6-8.6); Neutrophils % (auto) 89.5 % (37.0-80.0); Platelet Count (auto) 297 10^3/uL (140-450); Red Blood Cells 4.18 10^6/uL (4.0-5.20); Red Cell Distribution Width 13.7 % (11.8-14.3); White Blood Cell 8.1 10^3/uL (4.4-10.8)
[2020-03-28 07:19] LABS: Potassium 4.1 mmol/L (3.5-5.1)
--- NOTE | 2020-03-28 07:20 | NUR ---
Closing note Endorsed care to day shift RN
[2020-03-28 07:24] LABS: Calcium 8.7 mg/dL (8.5-10.1)
[2020-03-28 09:00] VITALS: BP 155/82
[2020-03-28] MEDS: ENOXAPARIN SOD 40 MG/0.4 ML SYRINGE SC SCH ×2 (10:00→10:15)
[2020-03-28] MEDS ORDERED: TRIAMTERENE/HCTZ 37.5/25 MG CAP/TAB PO SCH (10:00)
[2020-03-28] MEDS: DOXYCYCLINE 100 MG TAB/CAP PO SCH (10:14)
[2020-03-28] MEDS: SODIUM CHLORIDE 0.9% 1,000 ML IV SCH (10:15)
[2020-03-28] MEDS: NIFEdipine ER 30 MG TAB PO SCH (10:15)
[2020-03-28 12:56] VITALS: BP 156/71
--- NOTE | 2020-03-28 15:00 | NUR ---
Per Zuhair (ZEESHAN) patient already set up HH with [facility]. Patient can DC home anytime. Patient notified.
[2020-03-28 16:02] VITALS: BP 155/82
[2020-03-28 16:54] VITALS: BP 138/77
--- NOTE | 2020-03-28 19:23 | NUR ---
opening note patient is alert and orientated x4 no sob or distress noted. ready to be discharged. daughter waiting down stairs. oxygen saturation is 94% on 3 L nasal canula. will continue to monitor.
--- NOTE | 2020-03-28 19:27 | NUR ---
Discharge Patient is discharged at this time. Alert and orientated x4. NO sob or distress noted. teacher of the sight impaired wheeled patient downstairs her daughter is awaiting her.
== END 2020-03-28 19:25 | disposition home health service (06) | DRG 189 ==
LOC: ER 14:19 → EDBD 14:19 → TELE 14:20 → TELE-WESTW 19:55
PROVIDERS: ADMIT Internal Medicine; ATTEND Family Medicine
DX: J96.01 Acute respiratory failure with hypoxia (principal); I50.33 Acute on chronic diastolic (congestive) heart failure; J44.1 Chronic obstructive pulmonary disease with (acute) exacerbation; J45.901 Unspecified asthma with (acute) exacerbation; R65.10 Systemic inflammatory response syndrome (SIRS) of non-infectious origin without acute organ dysfunction; J20.9 Acute bronchitis, unspecified; I11.0 Hypertensive heart disease with heart failure; R73.9 Hyperglycemia, unspecified; T38.0X5A Adverse effect of glucocorticoids and synthetic analogues, initial encounter; Z80.9 Family history of malignant neoplasm, unspecified; Z90.710 Acquired absence of both cervix and uterus; Y92.89 Other specified places as the place of occurrence of the external cause; Z90.49 Acquired absence of other specified parts of digestive tract; Z87.891 Personal history of nicotine dependence; Z88.5 Allergy status to narcotic agent; Z88.2 Allergy status to sulfonamides
CPT/HCPCS: 36415; 71045; 80048; 80053; 81001; 82962; 83036; 83880; 84443; 84484; 85025; 87070; 87081; 87205; 93005; 93306; 94640; 94644; 96365; 96375; G0378; J3490

== ENCOUNTER → 2020-04-16 | Emergency (ER) | payer OTHER ==
[~2020-04-16] VITALS: Ht 170.2 cm; Wt 65.8 kg
[~2020-04-16] MED LIST changes: +ALBUTEROL SULF 2.5 MG/0.5ML(0.5%) NEB SOLN HHN ONE; +ALBUTEROL SULF 2.5 MG/0.5ML(0.5%) NEB SOLN NEB ONE; +IPRATROPIUM BROM 0.5 MG/2.5ML INH SOL HHN ONE; +IPRATROPIUM BROM 0.5 MG/2.5ML INH SOL NEB ONE; +cefTRIAXone 1GM/50ML D5W 50 ML IV ONE; +methylPREDNISolone SOD SUCC 125 MG/2 ML VL IV ONE
[2020-04-16 13:13] LABS: Basophils # (auto) 0 10 ^3/uL (0-0.2); Basophils % (auto) 0.5 % (0.0-2.0); Eosinophils # (auto) 0.2 10 ^3/uL (0-0.8); Eosinophils % (auto) 2.6 % (0.0-7.0); Hematocrit 36.2 % (36.0-46.0); Hemoglobin 11.8 g/dL (12.2-16.2); Lymphocytes # (auto) 1.6 10 ^3/uL (0.4-5.4); Lymphocytes % (auto) 23.4 % (10.0-50.0); Mean Corpuscular Hemoglobin 29.9 pg (28.0-32.0); Mean Corpuscular Hgb Conc. 32.5 g/dL (32.0-36.0); Mean Corpuscular Volume 91.9 fL (80.0-100.0); Monocytes # (auto) 0.3 10 ^3/uL (0-1.3); Neutrophils # (auto) 4.7 10 ^3/uL (1.6-8.6); Neutrophils % (auto) 68.5 % (37.0-80.0); Nucleated Red Blood Cells % 0.1 %; Platelet Count (auto) 294 10^3/uL (140-450); Red Blood Cells 3.94 10^6/uL (4.0-5.20); Red Cell Distribution Width 14.1 % (11.8-14.3); White Blood Cell 6.8 10^3/uL (4.4-10.8)
[2020-04-16 13:21] LABS: Albumin 3.1 g/dL (3.4-5.0); Anion Gap 6 (5-15); Blood Urea Nitrogen 13 mg/dL (7-18); Calcium 8.9 mg/dL (8.5-10.1); Carbon Dioxide 30 mmol/L (21-32); Chloride 106 mmol/L (98-107); Glucose 87 mg/dL (74-106); Magnesium 2.6 mg/dL (1.6-2.6); Sodium 142 mmol/L (136-145)
[2020-04-16 13:26] LABS: Alanine Aminotransferase 19 U/L (13-56); Alkaline Phosphatase 99 U/L (45-117); Aspartate Aminotransferase 15 U/L (15-37); BUN/Creatinine Ratio 17.1; Bilirubin, Total 0.6 mg/dL (0.2-1.0); GFR African American 95 mL/min; GFR Non-African American 78 mL/min; Total Protein 6.4 g/dL (6.4-8.2)
[2020-04-16 20:33] VITALS: BP 165/75
== END | disposition home or self-care (01) ==
LOC: EDUNIT# 12:26 → ER 12:42 → EDBD 12:42
DX: J20.9 Acute bronchitis, unspecified (principal); J44.0 Chronic obstructive pulmonary disease with (acute) lower respiratory infection; J44.1 Chronic obstructive pulmonary disease with (acute) exacerbation
CPT/HCPCS: 36415; 71045; 80053; 83605; 83735; 83880; 84484; 85025; 87040; 94640; 96365; 96375; 99291; J0696; J2930; J7644

== ENCOUNTER 2020-06-02 18:24 | Emergency (ER) | payer OTHER ==
[~2020-06-02] VITALS: Ht 170.2 cm; Wt 65.8 kg
[~2020-06-02 18:24] MED LIST changes: -ALBUTEROL SULF 2.5 MG/0.5ML(0.5%) NEB SOLN HHN ONE; -ALBUTEROL SULF 2.5 MG/0.5ML(0.5%) NEB SOLN NEB ONE; -IPRATROPIUM BROM 0.5 MG/2.5ML INH SOL HHN ONE; -IPRATROPIUM BROM 0.5 MG/2.5ML INH SOL NEB ONE; -cefTRIAXone 1GM/50ML D5W 50 ML IV ONE; -methylPREDNISolone SOD SUCC 125 MG/2 ML VL IV ONE
[2020-06-02] MEDS ORDERED: ALBUTEROL SULF 2.5 MG/0.5ML(0.5%) NEB SOLN NEB ONE (18:45)
[2020-06-02] MEDS ORDERED: IPRATROPIUM BROM 0.5 MG/2.5ML INH SOL NEB ONE (18:45)
[2020-06-02 19:11] LABS: Basophils # (auto) 0.1 10 ^3/uL (0-0.2); Eosinophils # (auto) 0.1 10 ^3/uL (0-0.8); Eosinophils % (auto) 1.6 % (0.0-7.0); Hematocrit 38.4 % (36.0-46.0); Lymphocytes # (auto) 1.8 10 ^3/uL (0.4-5.4); Mean Corpuscular Hemoglobin 30.9 pg (28.0-32.0); Mean Corpuscular Hgb Conc. 33.9 g/dL (32.0-36.0); Mean Corpuscular Volume 91.2 fL (80.0-100.0); Monocytes # (auto) 0.5 10 ^3/uL (0-1.3); Monocytes % (auto) 5.5 % (0.0-12.0); Neutrophils # (auto) 6.7 10 ^3/uL (1.6-8.6); Neutrophils % (auto) 72.9 % (37.0-80.0); Platelet Count (auto) 281 10^3/uL (140-450); Red Blood Cells 4.21 10^6/uL (4.0-5.20); White Blood Cell 9.2 10^3/uL (4.4-10.8)
[2020-06-02 19:31] LABS: Albumin 3.5 g/dL (3.4-5.0); BUN/Creatinine Ratio 25.9; Calcium 8.6 mg/dL (8.5-10.1); Potassium 3.9 mmol/L (3.5-5.1)
[2020-06-02 19:35] LABS: Bilirubin, Total 0.6 mg/dL (0.2-1.0); Total Protein 7.1 g/dL (6.4-8.2)
[2020-06-02] MEDS ORDERED: methylPREDNISolone SOD SUCC 125 MG/2 ML VL IV ONE (19:45)
[2020-06-02] MEDS ORDERED: ONDANSETRON HCL 4 MG/2 ML VIAL IV ONE (20:45)
[2020-06-02 21:50] VITALS: BP 131/86
[2020-06-03 00:31] VITALS: BP 155/78
[2020-06-03 01:00] VITALS: BP 155/78
--- NOTE | 2020-06-03 06:10 | NUR ---
Respiratory note: PT AWAKE, AND ALERT. NO RESPIRATORY DISTRESS NOTED. SPO2 95% ON 2LNC, HR 86, RR 20, BS CLEAR/DIMINISHED BILATERALLY. NO FURTHER RESPIRATORY INTERVENTIONS INDICATED AT THIS TIME. RN AT BEDSIDE. WILL CONTINUE TO MONITOR PT.
[2020-06-03] MEDS ORDERED: LOSARTAN POTASSIUM 25 MG TAB PO ONE (06:15)
[2020-06-03 07:03] VITALS: BP 187/89
== END 2020-06-03 07:26 | disposition short-term general hospital (02) ==
LOC: EDBD 18:24 → ER 18:24
DX: J44.1 Chronic obstructive pulmonary disease with (acute) exacerbation (principal); I70.0 Atherosclerosis of aorta; Z20.828 Contact with and (suspected) exposure to other viral communicable diseases
CPT/HCPCS: 36415; 36600; 71045; 80053; 82805; 83605; 83880; 84484; 85025; 87040; 87426; 94640; 94660; 96374; 99285; C9803; J2405; J2930; U0003

== ENCOUNTER 2020-07-30 10:26 | Inpatient (IN) | payer OTHER ==
[~2020-07-30] VITALS: Ht 165.1 cm; Wt 63.0 kg
[2020-07-30 11:00] LABS: Basophils # (auto) 0.1 10 ^3/uL (0-0.2); Basophils % (auto) 1.3 % (0.0-2.0); Eosinophils # (auto) 0.4 10 ^3/uL (0-0.8); Eosinophils % (auto) 6.6 % (0.0-7.0); Hematocrit 34.5 % (36.0-46.0); Lymphocytes # (auto) 2.7 10 ^3/uL (0.4-5.4); Lymphocytes % (auto) 42.2 % (10.0-50.0); Mean Corpuscular Hemoglobin 31.9 pg (28.0-32.0); Mean Corpuscular Hgb Conc. 34.7 g/dL (32.0-36.0); Mean Corpuscular Volume 91.9 fL (80.0-100.0); Monocytes # (auto) 0.4 10 ^3/uL (0-1.3); Monocytes % (auto) 6.1 % (0.0-12.0); Neutrophils # (auto) 2.8 10 ^3/uL (1.6-8.6); Neutrophils % (auto) 43.8 % (37.0-80.0); Nucleated Red Blood Cells % 0.1 %; Platelet Count (auto) 266 10^3/uL (140-450); Red Blood Cells 3.76 10^6/uL (4.0-5.20); Red Cell Distribution Width 14.1 % (11.8-14.3); White Blood Cell 6.4 10^3/uL (4.4-10.8)
[2020-07-30 11:10] LABS: Albumin 3.3 g/dL (3.4-5.0); Anion Gap 4 (5-15); BUN/Creatinine Ratio 18.9; Blood Urea Nitrogen 17 mg/dL (7-18); Calcium 8.7 mg/dL (8.5-10.1); Carbon Dioxide 30 mmol/L (21-32); Chloride 103 mmol/L (98-107); GFR African American 78 mL/min; GFR Non-African American 65 mL/min; Glucose 165 mg/dL (74-106); Potassium 3.9 mmol/L (3.5-5.1); Sodium 137 mmol/L (136-145)
[2020-07-30 11:16] LABS: Alanine Aminotransferase 18 U/L (13-56); Alkaline Phosphatase 85 U/L (45-117); Aspartate Aminotransferase 15 U/L (15-37); Bilirubin, Total 0.5 mg/dL (0.2-1.0); Total Protein 6.6 g/dL (6.4-8.2)
[2020-07-30] MEDS ORDERED: ALBUTEROL SULF 2.5 MG/0.5ML(0.5%) NEB SOLN HHN ONE ×2 (11:45→12:15)
[2020-07-30] MEDS ORDERED: cefTRIAXone 1GM/50ML D5W 50 ML IV ONE (12:15)
[2020-07-30] MEDS ORDERED: IPRATROPIUM BROM 0.5 MG/2.5ML INH SOL HHN ONE (12:15)
[2020-07-30] MEDS ORDERED: methylPREDNISolone SOD SUCC 125 MG/2 ML VL IV ONE (12:15)
[2020-07-30] MEDS ORDERED: HYDROcodone-ACET 5/325MG TAB PO PRN (18:30)
[2020-07-30] MEDS ORDERED: MORPHINE SULF INJ 2 MG/ML SYRINGE 1ML IV PRN ×2 (18:30)
[2020-07-30] MEDS ORDERED: hydrALAZINE HCL 20 MG/ML VL IV PRN (18:30)
[2020-07-30] MEDS ORDERED: ACETAMINOPHEN 500 MG TAB PO PRN (18:30)
[2020-07-30] MEDS ORDERED: ALPRAZolam 0.25 MG TAB PO PRN (18:30)
[2020-07-30] MEDS ORDERED: ONDANSETRON HCL 4 MG/2 ML VIAL IV PRN (18:30)
[2020-07-30] MEDS ORDERED: NITROGLYCERIN 0.4 MG SL TAB SL PRN (18:30)
[2020-07-30] MEDS: AZITHROMYCIN 500MG/ 250ML 250 ML IV SCH (19:08)
[2020-07-30 20:33] LABS: Urine Bacteria NONE SEEN /hpf (None Seen); Urine Blood TRACE /uL (Negative); Urine Mucus FEW (None Seen); Urine Specific Gravity 1.021 (1.001-1.035); Urine WBC 2 /hpf (0 - 5)
[2020-07-30] MEDS: methylPREDNISolone SOD SUCC 125 MG/2 ML VL IV SCH (22:17)
[2020-07-30] MEDS ORDERED: ALBUTEROL SULF 2.5 MG/0.5ML(0.5%) NEB SOLN ONE (22:36)
[2020-07-30] MEDS ORDERED: IPRATROPIUM BROM 0.5 MG/2.5ML INH SOL ONE (22:36)
[2020-07-30] MEDS: BUDESONIDE (INHALATION) 0.5 MG/2 ML NEB NEB SCH (22:41)
[2020-07-31 05:57] LABS: Basophils # (auto) 0 10 ^3/uL (0-0.2); Basophils % (auto) 0.1 % (0.0-2.0); Eosinophils # (auto) 0 10 ^3/uL (0-0.8); Hematocrit 33.9 % (36.0-46.0); Hemoglobin 11.6 g/dL (12.2-16.2); Lymphocytes # (auto) 0.5 10 ^3/uL (0.4-5.4); Lymphocytes % (auto) 13.1 % (10.0-50.0); Mean Corpuscular Hemoglobin 30.9 pg (28.0-32.0); Mean Corpuscular Hgb Conc. 34.2 g/dL (32.0-36.0); Mean Corpuscular Volume 90.4 fL (80.0-100.0); Monocytes # (auto) 0 10 ^3/uL (0-1.3); Monocytes % (auto) 0.8 % (0.0-12.0); Neutrophils # (auto) 3.2 10 ^3/uL (1.6-8.6); Platelet Count (auto) 272 10^3/uL (140-450); Red Blood Cells 3.75 10^6/uL (4.0-5.20); Red Cell Distribution Width 13.9 % (11.8-14.3); White Blood Cell 3.7 10^3/uL (4.4-10.8)
[2020-07-31] MEDS: IPRATROPIUM BROM 0.5 MG/2.5ML INH SOL NEB SCH ×3 (06:00→20:50)
[2020-07-31] MEDS: ALBUTEROL SULF 2.5 MG/0.5ML(0.5%) NEB SOLN NEB SCH ×3 (06:00→20:50)
[2020-07-31 06:19] LABS: BUN/Creatinine Ratio 28.4; Calcium 9.2 mg/dL (8.5-10.1); Potassium 4.3 mmol/L (3.5-5.1)
[2020-07-31] MEDS: cefTRIAXone 1GM/50ML D5W 50 ML IV SCH (08:20)
[2020-07-31] MEDS: AZITHROMYCIN 500MG/ 250ML 250 ML IV SCH (08:21)
[2020-07-31] MEDS: FAMOTIDINE 20 MG TAB PO SCH (08:21)
[2020-07-31] MEDS: methylPREDNISolone SOD SUCC 125 MG/2 ML VL IV SCH ×2 (08:21→22:00)
[2020-07-31] MEDS: amLODIPine BESYLATE 5 MG TAB PO SCH (08:21)
[2020-07-31] MEDS ORDERED: LORazepam 2MG/ML-1ML VIAL ONE (08:38)
[2020-07-31] MEDS ORDERED: LORazepam 2MG/ML-1ML VIAL IV PRN ×2 (08:45→13:30)
[2020-07-31] MEDS: BUDESONIDE (INHALATION) 0.5 MG/2 ML NEB NEB SCH ×2 (10:00→21:43)
[2020-07-31] MEDS ORDERED: ALBUTEROL SULF 2.5 MG/0.5ML(0.5%) NEB SOLN NEB PRN (13:30)
[2020-08-01] MEDS: ALBUTEROL SULF 2.5 MG/0.5ML(0.5%) NEB SOLN NEB SCH ×3 (06:00→18:00)
[2020-08-01] MEDS: IPRATROPIUM BROM 0.5 MG/2.5ML INH SOL NEB SCH ×3 (06:00→18:00)
[2020-08-01 06:46] LABS: Potassium 4.8 mmol/L (3.5-5.1)
[2020-08-01 07:41] LABS: BUN/Creatinine Ratio 33.8; Magnesium 2.4 mg/dL (1.6-2.6)
[2020-08-01] MEDS: cefTRIAXone 1GM/50ML D5W 50 ML IV SCH (09:00)
[2020-08-01] MEDS: BUDESONIDE (INHALATION) 0.5 MG/2 ML NEB NEB SCH ×2 (10:00→18:40)
[2020-08-01] MEDS: methylPREDNISolone SOD SUCC 125 MG/2 ML VL IV SCH ×2 (10:00→22:22)
[2020-08-01] MEDS: AZITHROMYCIN 500MG/ 250ML 250 ML IV SCH (10:00)
[2020-08-01] MEDS: FAMOTIDINE 20 MG TAB PO SCH (10:35)
[2020-08-01] MEDS: amLODIPine BESYLATE 5 MG TAB PO SCH (10:35)
[2020-08-01 13:00] VITALS: BP 162/89
[2020-08-01 17:00] VITALS: BP 142/78
[2020-08-02] VITALS: BP 136/73
[2020-08-02] MEDS: IPRATROPIUM BROM 0.5 MG/2.5ML INH SOL NEB SCH ×2 (06:54→13:28)
[2020-08-02] MEDS: BUDESONIDE (INHALATION) 0.5 MG/2 ML NEB NEB SCH (06:54)
[2020-08-02] MEDS: ALBUTEROL SULF 2.5 MG/0.5ML(0.5%) NEB SOLN NEB SCH ×2 (06:54→13:28)
[2020-08-02 08:00] VITALS: BP_SYST 136; BP_SYST 148; BP_DIAS 73; BP_DIAS 82
[2020-08-02] MEDS: methylPREDNISolone SOD SUCC 125 MG/2 ML VL IV SCH (11:27)
[2020-08-02] MEDS: cefTRIAXone 1GM/50ML D5W 50 ML IV SCH (11:27)
[2020-08-02] MEDS: AZITHROMYCIN 500MG/ 250ML 250 ML IV SCH (11:27)
[2020-08-02] MEDS: FAMOTIDINE 20 MG TAB PO SCH (11:29)
[2020-08-02] MEDS: amLODIPine BESYLATE 5 MG TAB PO SCH (11:29)
[2020-08-02 16:00] VITALS: BP 147/68
== END 2020-08-02 19:00 | disposition home or self-care (01) | DRG 189 ==
LOC: EDBD 10:26 → ER 10:26 → OVERFLOW 18:25 → TELE-CENTR 08-01 10:54
PROVIDERS: ADMIT Nurse Practitioner Acute Care; ATTEND Family Medicine
PROC: 5A09357 Assistance with Respiratory Ventilation, Less than 24 Consecutive Hours, Continuous Positive Airway Pressure (ICD-10-PCS; principal; 2020-07-30)
PROC: 5A09357 Assistance with Respiratory Ventilation, Less than 24 Consecutive Hours, Continuous Positive Airway Pressure (ICD-10-PCS; 2020-07-31)
PROC: 5A09357 Assistance with Respiratory Ventilation, Less than 24 Consecutive Hours, Continuous Positive Airway Pressure (ICD-10-PCS; 2020-08-02)
DX: J96.21 Acute and chronic respiratory failure with hypoxia (principal); J44.1 Chronic obstructive pulmonary disease with (acute) exacerbation; J44.0 Chronic obstructive pulmonary disease with (acute) lower respiratory infection; D64.9 Anemia, unspecified; I10 Essential (primary) hypertension; E66.9 Obesity, unspecified; G47.33 Obstructive sleep apnea (adult) (pediatric); Z20.828 Contact with and (suspected) exposure to other viral communicable diseases; J20.9 Acute bronchitis, unspecified; Z79.51 Long term (current) use of inhaled steroids; Z80.1 Family history of malignant neoplasm of trachea, bronchus and lung; Z80.3 Family history of malignant neoplasm of breast; Z80.49 Family history of malignant neoplasm of other genital organs; Z82.49 Family history of ischemic heart disease and other diseases of the circulatory system; Z90.710 Acquired absence of both cervix and uterus; Z88.5 Allergy status to narcotic agent; Z88.2 Allergy status to sulfonamides; Z68.23 Body mass index [BMI] 23.0-23.9, adult
CPT/HCPCS: 36415; 71045; 80048; 80053; 81001; 82306; 83605; 83735; 83880; 84484; 85025; 85379; 87040; 87426; 93005; 94640; 94660; 97116; 97163; 97530; 99291; G0378; J0696

== ENCOUNTER 2020-09-04 11:22 | Emergency (ER) | payer BC, OTHER ==
[~2020-09-04] VITALS: Ht 165.1 cm; Wt 63.5 kg
[~2020-09-04 11:22] MED LIST changes: -FLUT250M2 INH; -TIOTCAP IN
[2020-09-04] MEDS ORDERED: methylPREDNISolone SOD SUCC 125 MG/2 ML VL ONE (11:28)
[2020-09-04] MEDS ORDERED: methylPREDNISolone SOD SUCC 125 MG/2 ML VL IV ONE (12:00)
[2020-09-04 12:07] LABS: Basophils # (auto) 0.1 10 ^3/uL (0-0.2); Eosinophils # (auto) 0.2 10 ^3/uL (0-0.8); Hemoglobin 12.8 g/dL (12.2-16.2); Mean Corpuscular Volume 90.9 fL (80.0-100.0); Monocytes # (auto) 0.4 10 ^3/uL (0-1.3); Monocytes % (auto) 5.8 % (0.0-12.0)
[2020-09-04 12:09] LABS: Basophils % (auto) 1.2 % (0.0-2.0); Eosinophils % (auto) 2.2 % (0.0-7.0); Hematocrit 37.5 % (36.0-46.0); Lymphocytes # (auto) 2.6 10 ^3/uL (0.4-5.4); Lymphocytes % (auto) 33.5 % (10.0-50.0); Mean Corpuscular Hgb Conc. 34.1 g/dL (32.0-36.0); Neutrophils # (auto) 4.4 10 ^3/uL (1.6-8.6); Neutrophils % (auto) 57.3 % (37.0-80.0); Nucleated Red Blood Cells % 0.1 %; Platelet Count (auto) 608 10^3/uL (140-450); Red Blood Cells 4.13 10^6/uL (4.0-5.20); Red Cell Distribution Width 14.6 % (11.8-14.3); White Blood Cell 7.7 10^3/uL (4.4-10.8)
[2020-09-04] MEDS ORDERED: ALBUTEROL SULF 2.5 MG/0.5ML(0.5%) NEB SOLN NEB ONE (12:30)
[2020-09-04] MEDS ORDERED: IPRATROPIUM BROM 0.5 MG/2.5ML INH SOL NEB ONE (12:30)
[2020-09-04 12:32] LABS: Chloride 105 mmol/L (98-107); Potassium 4.1 mmol/L (3.5-5.1); Sodium 140 mmol/L (136-145)
[2020-09-04 12:52] LABS: Alanine Aminotransferase 20 U/L (13-56); Albumin 3.5 g/dL (3.4-5.0); Alkaline Phosphatase 91 U/L (45-117); Anion Gap 6 (5-15); Aspartate Aminotransferase 21 U/L (15-37); BUN/Creatinine Ratio 12.5; Bilirubin, Total 0.7 mg/dL (0.2-1.0); Blood Urea Nitrogen 10 mg/dL (7-18); Carbon Dioxide 29 mmol/L (21-32); GFR African American 89 mL/min; GFR Non-African American 74 mL/min; Glucose 113 mg/dL (74-106); Total Protein 7.2 g/dL (6.4-8.2)
[2020-09-04] MEDS ORDERED: ALBUTEROL SULF 2.5 MG/0.5ML(0.5%) NEB SOLN ONE (14:39)
[2020-09-04] MEDS ORDERED: IPRATROPIUM BROM 0.5 MG/2.5ML INH SOL ONE (14:40)
[2020-09-04 14:55] VITALS: BP 157/74
[2020-09-04] MEDS ORDERED: ALPRAZolam 0.25 MG TAB PO ONE (15:15)
== END 2020-09-04 15:36 | disposition home or self-care (01) ==
LOC: ER 11:22 → EDBD 11:22 → ER 15:36
DX: J44.1 Chronic obstructive pulmonary disease with (acute) exacerbation (principal); E78.5 Hyperlipidemia, unspecified; I10 Essential (primary) hypertension; Z90.710 Acquired absence of both cervix and uterus
CPT/HCPCS: 36415; 71045; 80053; 83605; 84484; 85025; 87040; 93005; 94640; 96374; 99285; J2930; J7644